=== PATIENT | female | born 1980 | race Caucasian/White ===

== ENCOUNTER 2017-01-14 15:17 | Emergency (ER) | payer BC ==
[~2017-01-14] VITALS: Ht 167.6 cm; Wt 77.1 kg
[2017-01-14 15:17] VITALS: BP 124/66; PULSE 82; RESP 19; TEMP 97.2; O2SAT 97
--- NOTE | 2017-01-14 15:17 | NUR ---
BROUGHT BACK TO BED #7 AND TRIAGED. REPORT GIVEN TO NIC
--- NOTE | 2017-01-14 15:27 | NUR ---
Patient to ER bed 7 to gown for evaluation. Side rails up. Report given to Maritza BURTON.
--- NOTE | 2017-01-14 15:32 | NUR ---
Patient to ER C/O vaginal bleeding with mild abdominal cramping. Patient states that she is about 17 weeks gestation, had a normal US yesterday but today she noticed scant brownish discharge. Denies N/V, AAOx4, unlabored breathing, no signs of acute distress.
--- NOTE | 2017-01-14 15:33 | NUR ---
ER MD Bain at bedside for evaluation
--- NOTE | 2017-01-14 15:48 | NUR ---
Pelvic exam performed by ER MD Bain with Aly BURTON at bedside for entire examination. Patient tolerated procedure well. Patient assisted to position of comfort after examination.
[2017-01-14 16:02] LABS: BASOPHILS # (AUTO) 0.1 K/uL (0.0-0.2); BASOPHILS % (AUTO) 0.6 % (0.0-2.0); EOSINOPHILS % (AUTO) 0.4 % (0.0-4.0); HEMATOCRIT 35.2 % (36-48); HEMOGLOBIN 11.6 g/dL (12.0-16.0); LYMPHOCYTES # (AUTO) 2.6 K/uL (1.0-5.5); LYMPHOCYTES % (AUTO) 23.6 % (20.5-51.5); MEAN CORPUSCULAR HEMOGLOBIN 23 pg (27-31); MEAN CORPUSCULAR HGB CONC 33 % (32-36); MEAN CORPUSCULAR VOLUME 70 fL (79.0-98.0); MONOCYTES # (AUTO) 0.4 K/uL (0.0-1.0); MONOCYTES % (AUTO) 3.6 % (1.7-9.3); NEUTROPHILS # (AUTO) 7.9 K/uL (1.8-7.7); NEUTROPHILS % (AUTO) 71.8 % (40.0-70.0); PLATELET COUNT (AUTO) 316 K/uL (130-430); RED BLOOD CELL COUNT(AUTO) 5.05 MIL/uL (4.2-6.2); RED CELL DISTRIBUTION WIDTH 12.7 % (9.0-15.0)
[2017-01-14 16:04] LABS: BILIRUBIN,URINE NEGATIVE (NEGATIVE); BLOOD, URINE 3+ (NEGATIVE); CLARITY/URINE CLEAR (CLEAR); COLOR,URINE YELLOW (YELLOW); GLUCOSE,URINE NEGATIVE (NEGATIVE); KETONES,URINE NEGATIVE (NEGATIVE); LEUKOCYTE ESTERASE ,URINE NEGATIVE (NEGATIVE); NITRITE, URINE NEGATIVE (NEGATIVE); PH,URINE 7.5 (5.0-8.0); PROTEIN URINE NEGATIVE (NEGATIVE); UROBILINOGEN,URINE 0.2 (0.2-1.0)
--- NOTE | 2017-01-14 16:10 | NUR ---
safety relief valve technician at bedside for U/S
[2017-01-14 16:22] LABS: BACTERIA,URINE FEW /HPF (None Seen); INR 0.9 (0.8-1.2); PROTHROMBIN TIME 10.2 SECS (9.5-12.5); WBC,URINE 0-3 /HPF (0-3)
[2017-01-14 16:29] LABS: CALCIUM 8.7 mg/dL (8.4-11.0); CREATININE 0.66 mg/dL (0.55-1.30); POTASSIUM 3.5 mmol/L (3.5-5.1)
[2017-01-14 16:55] LABS: TOTAL BILIRUBIN 0.2 mg/dL (0.0-1.0); TOTAL PROTEIN, SERUM 7.1 g/dL (6.4-8.3)
[2017-01-14 17:45] VITALS: BP 119/64; PULSE 75; RESP 19; TEMP 97.8; O2SAT 98
--- NOTE | 2017-01-14 17:45 | NUR ---
Patient given written and verbal discharge instructions and verbalizes understanding. ER MD Bain discussed with patient the results and treatment provided. Patient in stable condition. ID arm band removed. Rx of nitrofurantoin given. Patient educated on pain management and to follow up with PMD. Pain Scale 0/10. Opportunity for questions provided and answered. Patient advised to see OBGYN or return to ED if symptoms worsens.
== END 2017-01-14 17:45 | disposition home or self-care (01) ==
LOC: SED 15:17
DX: O20.0 Threatened abortion (principal); O23.92 Unspecified genitourinary tract infection in pregnancy, second trimester; R82.71 Bacteriuria; Z3A.17 17 weeks gestation of pregnancy; Z88.0 Allergy status to penicillin; Z88.1 Allergy status to other antibiotic agents; Z88.4 Allergy status to anesthetic agent
CPT/HCPCS: 36415; 76805-TC; 80053; 81000-TC; 81025; 84702-TC; 85025; 85610-TC; 85730-TC; 86886; 86900; 86901; 99285

== ENCOUNTER 2017-02-01 13:43 | Emergency (ER) | payer BC ==
[~2017-02-01] VITALS: Ht 167.6 cm; Wt 78.9 kg
[2017-02-01 13:51] VITALS: BP_SYST 117
[2017-02-01 15:20] LABS: BILIRUBIN,URINE NEGATIVE (NEGATIVE); BLOOD, URINE NEGATIVE (NEGATIVE); CLARITY/URINE CLEAR (CLEAR); COLOR,URINE YELLOW (YELLOW); GLUCOSE,URINE NEGATIVE (NEGATIVE); KETONES,URINE NEGATIVE (NEGATIVE); LEUKOCYTE ESTERASE ,URINE NEGATIVE (NEGATIVE); NITRITE, URINE NEGATIVE (NEGATIVE); PROTEIN URINE NEGATIVE (NEGATIVE); UROBILINOGEN,URINE 0.2 (0.2-1.0)
[2017-02-01 15:30] VITALS: BP_SYST 115
== END 2017-02-01 15:30 | disposition home or self-care (01) ==
LOC: SED 13:43
DX: O26.892 Other specified pregnancy related conditions, second trimester (principal); R10.84 Generalized abdominal pain; Z3A.19 19 weeks gestation of pregnancy; Z88.0 Allergy status to penicillin; Z88.1 Allergy status to other antibiotic agents; Z88.8 Allergy status to other drugs, medicaments and biological substances
CPT/HCPCS: 76805-TC; 81003; 99285